=== PATIENT | male | born 1990 | race Two or more races ===

== ENCOUNTER 2018-06-05 02:16 | Emergency (ER) | payer SELFPAY ==
[~2018-06-05] VITALS: Ht 170.2 cm; Wt 95.0 kg
[2018-06-05 02:16] VITALS: BP 135/86
--- NOTE | 2018-06-05 02:26 | ED.ADGEN ---
Past History Past Medical History: Arthritis, Other Adult General Chief Complaint Chief Complaint ".. I am having bad rotator cuff pain... in my Lt shoulder... I hurt it when I was 13.. I was to get surgery on it.. but never did. tonight it is really hurting.. I have been getting mobic for it... but it is not helping tonight.. " HPI HPI Patient is a 27 year old male inmate from [facility], who presents with above hx and complaints of Lt. rotator cuff pain. Pt. has sensation in deltoid. Distal neurovascular intact. Pt. states pain has been chronic and been on multiple meds for it. Pt. denies any recent re-injury. Pt. states has been on tramadol, hydrocodone and morphine in past. These meds have been the only ones that help. No hx travel, ill contacts or immunosuppression. Pt is able to extend shoulder. ROM increased the pain. Pt. is right hand dominate. Review of Systems Review of Systems Constitutional: Denies fever or chills [] Eyes: Denies change in visual acuity, redness, or eye pain [] HENT: Denies nasal congestion or sore throat [] Respiratory: Denies cough or shortness of breath [] Cardiovascular: No additional information not addressed in HPI [] GI: Denies abdominal pain, nausea, vomiting, bloody stools or diarrhea [] : Denies dysuria or hematuria [] Musculoskeletal: Denies back pain or joint pain [] Except complaints of Lt shoulder rotator cuff pain. Integument: Denies rash or skin lesions []Multiple tattoos. Neurologic: Denies headache, focal weakness or sensory changes [] Endocrine: Denies polyuria or polydipsia [] All other systems were reviewed and found to be within normal limits, except as documented in this note. Family History Family History Non-contributory Current Medications Current Medications Current Medications Medications (Trade) Dose Ordered Sig/Mary Ann Start Time Stop Time Status Last Admin Dose Admin Methylprednisolone Acetate (DEPO-Medrol IM) 40 mg 1X ONCE 06/05/18 03:00 06/05/18 03:01 DC 06/05/18 03:08 40 MG Orphenadrine Citrate (Norflex) 60 mg 1X ONCE 06/05/18 03:00 06/05/18 03:01 DC 12/10/18 03:08 60 MG Tramadol HCl (Ultram) 50 mg 1X ONCE 06/05/18 03:00 06/05/18 03:01 DC 06/05/18 03:09 50 MG See Nursing for home meds. Allergies Allergies Allergies Coded Allergies Type Severity Reaction Last Updated Verified ibuprofen Allergy Intermediate Unknown 06/05/18 Yes Physical Exam Physical Exam Constitutional: Well developed, well nourished, no acute distress, non-toxic appearance. [] HENT: Normocephalic, atraumatic, bilateral external ears normal, oropharynx moist, no oral exudates, nose normal. [] Eyes: PERRLA, EOMI, conjunctiva normal, no discharge. [] Neck: Normal range of motion, no tenderness, supple, no stridor. [] Cardiovascular:Heart rate regular rhythm, no murmur [] Lungs & Thorax: Bilateral breath sounds equal at apex with scattered wheezes on auscultation [] Abdomen: Bowel sounds normal, soft, no tenderness, no masses, no pulsatile masses. [] Skin: Warm, dry, no erythema, no rash. [] Back: No tenderness, no CVA tenderness. [] Extremities: No tenderness, no cyanosis, no clubbing, ROM intact, no edema. [] Except findings of Lt shoulder pain as per HPI Neurologic: Alert and oriented X 3, normal motor function, normal sensory function, no focal deficits noted. [] Psychologic: Affect normal, judgement normal, mood normal. [] Current Patient Data Vital Signs Vital Signs Date Time Temp Pulse Resp B/P (MAP) Pulse Ox O2 Delivery O2 Flow Rate FiO2 06/05/18 03:09 18 97 Room Air 06/05/18 02:16 98.1 94 EKG EKG [] Radiology/Procedures Radiology/Procedures [] Course & Med Decision Making Course & Med Decision Making Pertinent Labs and Imaging studies reviewed. (See chart for details). Pt. does appear to exhibit narcotic seeking behaviors. After X-rays pt. demanded discharge. Stating if he did not want to wait for his meds. Pt. advised orders and xray reading pending. [] Final Impression Final Impression 1. Hx. Rotator Cuff Injury[] 2. Lt. Shoulder Arthropathy Dragon Disclaimer Dragon Disclaimer This electronic medical record was generated, in whole or in part, using a voice recognition dictation system. JENNIFER CANSECO MD Jun 05, 2018 02:26
[2018-06-05] MEDS ORDERED: traMADol 50 MG TABLET PO ONE (03:00)
[2018-06-05] MEDS ORDERED: ORPHENADRINE CITRATE 60 MG/2 ML VIAL. IM ONE (03:00)
[2018-06-05] MEDS ORDERED: methylPREDNISolone ACETATE 40 MG/ML VIAL. IM ONE (03:00)
--- NOTE | 2018-06-05 08:15 | RAD ---
SHOULDER 2+V LEFT, CHEST PA LATERAL Clinical indications: CHEST PAIN, LEFT SHOULDER PAIN, HX OF LABRUM TEAR IN SHOULDER WITH MULTIPLE DISLOCATIONS 2 view chest x-ray COMPARISON: None available. Findings: No acute lung infiltrate or pleural effusion or pulmonary edema or lung mass or pneumothorax is seen. The heart size, pulmonary vasculature, mediastinum and both gamaliel are unremarkable. The osseous structures appear intact. Impression: No acute radiographic abnormality is seen. 3 view study of the left shoulder: No acute fracture or dislocation or osteolytic process is evident. No AC joint separation is seen. No significant arthritic change is evident. IMPRESSION: No acute osseous abnormality. Electronically signed by: Americo Guzman MD (06/05/2018 8:11 AM) [facility]
[2018-06-06] MEDS ORDERED: Percogesic PO (12:38)
== END 2018-06-05 03:30 | disposition home or self-care (01) ==
LOC: ER 02:16
DX: M12.812 Other specific arthropathies, not elsewhere classified, left shoulder (principal); M19.90 Unspecified osteoarthritis, unspecified site; Z88.6 Allergy status to analgesic agent
CPT/HCPCS: 71046; 73030; 96372; 99283; J1030; J2360

== ENCOUNTER 2018-06-06 11:25 | Emergency (ER) | payer OTHER ==
[~2018-06-06] VITALS: Ht 170.2 cm; Wt 95.4 kg
[2018-06-06 11:28] VITALS: BP 134/93
[2018-06-06] MEDS ORDERED: ORPHENADRINE CITRATE 60 MG/2 ML VIAL. IM ONE (12:00)
--- NOTE | 2018-06-06 12:16 | RAD ---
SHOULDER 2+V LEFT History: HX torn ligament in shoulder. Stretching this AM and heard popping noise, unable to move shoulder, pain in joint. Pt shielded
. Comparison: June 05, 2018 No acute fracture or aggressive bone destruction. Joint spaces are intact. Osteolytic lesion at the humeral head with a thin uniform sclerotic rim, may represent an intraosseous cyst. No gross soft tissue abnormality. IMPRESSION: No acute fracture or dislocation. Electronically signed by: Antonino Thomas MD (06/06/2018 12:12 PM) [facility]
[2018-06-06] MEDS ORDERED: Percogesic PO (12:38)
--- NOTE | 2018-06-06 12:39 | PHYS DOC ---
Past History Past Medical History: No Pertinent History Past Surgical History: No Surgical History Alcohol Use: None Drug Use: None Adult General Chief Complaint Chief Complaint: UPPER EXTREMITY PAIN HPI HPI Patient is a 27 year old right handed male patient resident of [facility] who presents with complaining of left shoulder pain after he felt a pop this morning and was not able to move his shoulder since 7 AM today. Patient states he had history of frequent shoulder dislocation and thinks he had another dislocated shoulder. Patient denies focal neurodeficit and rated his pain 8/10. Review of Systems Review of Systems Constitutional: Denies fever or chills [] Eyes: Denies change in visual acuity, redness, or eye pain [] HENT: Denies nasal congestion or sore throat [] Respiratory: Denies cough or shortness of breath [] Cardiovascular: No additional information not addressed in HPI [] GI: Denies abdominal pain, nausea, vomiting, bloody stools or diarrhea [] : Denies dysuria or hematuria [] Musculoskeletal: Denies back pain, reports joint pain [] Integument: Denies rash or skin lesions [] Neurologic: Denies headache, focal weakness or sensory changes [] Endocrine: Denies polyuria or polydipsia [] All other systems were reviewed and found to be within normal limits, except as documented in this note. Current Medications Current Medications Current Medications Medications (Trade) Dose Ordered Sig/Mary Ann Start Time Stop Time Status Last Admin Dose Admin Orphenadrine Citrate (Norflex) 60 mg 1X ONCE 06/06/18 12:00 06/06/18 12:01 DC 06/06/18 12:03 60 MG Allergies Allergies Allergies Coded Allergies Type Severity Reaction Last Updated Verified ibuprofen Allergy Intermediate Unknown 06/05/18 Yes Physical Exam Physical Exam Constitutional: Well developed, well nourished, no acute distress, non-toxic appearance. [] HENT: Normocephalic, atraumatic Eyes: PERRLA, EOMI, conjunctiva normal, no discharge. [] Neck: Normal range of motion, no tenderness, supple, no stridor. [] Cardiovascular:Heart rate regular rhythm, no murmur [] Lungs & Thorax: Bilateral breath sounds clear to auscultation [] Abdomen: Bowel sounds normal, soft, no tenderness, no masses, no pulsatile masses. [] Skin: Warm, dry, no erythema, no rash. [] Back: No tenderness, no CVA tenderness. [] Extremities: Left shoulder without deformity or focal tenderness, normal range of motion , no cyanosis, no clubbing, ROM intact, no edema. [] Neurologic: Alert and oriented X 3, normal motor function, normal sensory function, no focal deficits noted. [] Psychologic: Affect normal, judgement normal, mood normal. [] Current Patient Data Vital Signs Vital Signs Date Time Temp Pulse Resp B/P (MAP) Pulse Ox O2 Delivery O2 Flow Rate FiO2 06/06/18 11:28 98.3 69 18 99 Room Air EKG EKG [] Radiology/Procedures Radiology/[place] [address] IMAGING REPORT Signed PATIENT: LORNA MCDONALD ACCOUNT: [id number] : 1990 LOCATION: ER AGE: 27 SEX: M EXAM STATUS: REG ER ORD. PHYSICIAN: VANESSA CHOI MD REASON: felt a pop this morning, unable to move the shoulder PROCEDURE: SHOULDER 2+V LEFT SHOULDER 2+V LEFT History: HX torn ligament in shoulder. Stretching this AM and heard popping noise, unable to move shoulder, pain in joint. Pt shielded
. Comparison: June 05, 2018 No acute fracture or aggressive bone destruction. Joint spaces are intact. Osteolytic lesion at the humeral head with a thin uniform sclerotic rim, may represent an intraosseous cyst. No gross soft tissue abnormality. IMPRESSION: No acute fracture or dislocation. Electronically signed by: Antonino Thomas MD (06/06/2018 12:12 PM) [facility] DICTATED AND SIGNED BY: ANTONINO THOMAS MD DATE: 06/06/18 1210 CC: VANESSA CHOI MD; PCP,NO ~ Course & Med Decision Making Course & Med Decision Making Pertinent Imaging studies reviewed. (See chart for details) Evaluation of patient in ER showed 27-year-old male patient with complaining of left shoulder pain after felt a pop in his shoulder. Patient states he had previous shoulder dislocation. Patient had unremarkable physical exam and x-ray of left shoulder. Patient treated feet for the next in ER and shoulder sling was applied. Plan discharge patient home with prescription of precociously and instruction to apply ice on shoulder and follow up with his primary care physician. Elías Disclaimer Dragon Disclaimer This electronic medical record was generated, in whole or in part, using a voice recognition dictation system. Departure Departure: Impression: Primary Impression: Muscle strain of left shoulder region Disposition: HOME, SELF-CARE (at 1236) Condition: IMPROVED Referrals: PCP,NO (PCP) Patient Instructions: Shoulder Sprain Additional Instructions: Apply ice on the affected area Follow-up with your primary care physician in 3-5 days Return to ER if not getting better Scripts [Percogesic] No Conflict Check 1 TAB PO QID PRN for PAIN, #14 Prov: VANESSA CHOI MD 06/06/18 VANESSA CHOI MD Jun 06, 2018 12:39
== END 2018-06-06 12:50 | disposition home or self-care (01) ==
LOC: ER 11:25
DX: S46.912A Strain of unspecified muscle, fascia and tendon at shoulder and upper arm level, left arm, initial encounter (principal); X50.9XXA Other and unspecified overexertion or strenuous movements or postures, initial encounter; Y93.89 Activity, other specified; Y92.89 Other specified places as the place of occurrence of the external cause; Y99.8 Other external cause status
CPT/HCPCS: 73030; 96372; 99283; J2360

== ENCOUNTER 2018-06-19 00:22 | Emergency (ER) | payer OTHER ==
[~2018-06-19] VITALS: Ht 170.2 cm; Wt 91.8 kg
[~2018-06-19 00:22] MED LIST: Percogesic PO
--- NOTE | 2018-06-19 01:35 | PHYS DOC ---
Past History Past Medical History: No Pertinent History Past Surgical History: No Surgical History Alcohol Use: None Drug Use: None Adult General Chief Complaint Chief Complaint: MECHANICAL FALL HPI HPI 19-year-old male presents with headache and neck pain. The patient states that this morning around 7:30 AM he fell out of his pocket. He states he landed on his head and neck. He believes he was knocked unconscious. The patient was able to get up and did not immediately come emergency room. Throughout the day he began have more pain and stiffness. He now is quite concerned about his neck as his range of motion is limited due to pain. He denies any other injuries. He denies paresthesias or numbness. Review of Systems Review of Systems Constitutional: Denies fever or chills [] Eyes: Denies change in visual acuity, redness, or eye pain [] HENT: Denies nasal congestion or sore throat [] Respiratory: Denies cough or shortness of breath [] Cardiovascular: No additional information not addressed in HPI [] GI: Denies abdominal pain, nausea, vomiting, bloody stools or diarrhea [] : Denies dysuria or hematuria [] Musculoskeletal: Neck pain[] Integument: Denies rash or skin lesions [] Neurologic: Denies headache, focal weakness or sensory changes [] Endocrine: Denies polyuria or polydipsia [] All other systems were reviewed and found to be within normal limits, except as documented in this note. Allergies Allergies Allergies Coded Allergies Type Severity Reaction Last Updated Verified acetaminophen Allergy Intermediate NAUSEA/VOMITING 06/19/18 Yes ibuprofen Allergy Intermediate Unknown 06/05/18 Yes Physical Exam Physical Exam Constitutional: Well developed, well nourished, no acute distress, non-toxic appearance. [] HENT: Normocephalic, atraumatic, bilateral external ears normal, oropharynx moist, no oral exudates, nose normal. [] Eyes: PERRLA, EOMI, conjunctiva normal, no discharge. [] Neck: Limited range of motion due to pain, paraspinal cervical tenderness bilaterally[] Cardiovascular:Heart rate regular rhythm, no murmur [] Lungs & Thorax: Bilateral breath sounds clear to auscultation [] Abdomen: Bowel sounds normal, soft, no tenderness, no masses, no pulsatile masses. [] Skin: Warm, dry, no erythema, no rash. [] Back: No tenderness, no CVA tenderness. [] Extremities: No tenderness, no cyanosis, no clubbing, ROM intact, no edema. [] Neurologic: Alert and oriented X 3, normal motor function, normal sensory function, no focal deficits noted. [] Psychologic: Affect normal, judgement normal, mood normal. [] Current Patient Data Vital Signs Vital Signs Date Time Temp Pulse Resp B/P (MAP) Pulse Ox O2 Delivery O2 Flow Rate FiO2 06/19/18 00:51 97.9 98 20 97 Room Air EKG EKG [] Radiology/Procedures Radiology/Procedures [] Impressions: CT head and cervical spine without contrast 06/19/2018. Reason for exam: Fell off top bunk and landed on head. Noncontrast images were performed through the brain. Exposure: One or more of the following individualized dose reduction techniques were utilized for this examination: 1. Automated exposure control 2. Adjustment of the mA and/or kV according to patient size 3. Use of iterative reconstruction technique. FINDINGS: There is no apparent intracranial hemorrhage or abnormal extra-axial fluid collection. No area of abnormal density is seen in the brain. The ventricles and basilar cisterns are normally positioned. Bone windows show no apparent fracture of the skull or abnormal sinus or mastoid opacification. IMPRESSION: No acute intracranial abnormality. CT cervical spine: Helical noncontrast images were performed. Sagittal and coronal reconstructions were obtained. Exposure: One or more of the following individualized dose reduction techniques were utilized for this examination: 1. Automated exposure control 2. Adjustment of the mA and/or kV according to patient size 3. Use of iterative reconstruction technique. FINDINGS: Alignment is normal. There is no apparent loss of vertebral body height or prevertebral soft tissue swelling. No fracture line is seen. The intervertebral discs are not narrowed. There is no apparent destructive process. IMPRESSION: No acute abnormality. Electronically signed by: Quentin Moraes Jr., MD (06/19/2018 1:53 AM) [facility] Course & Med Decision Making Course & Med Decision Making Pertinent Labs and Imaging studies reviewed. (See chart for details) The patient's head and neck CT is negative for acute findings or fracture. The patient appeared to have soft tissue injury. I have given him one [place] 5/325 in the ED. I will discharge him with a course of these medications as well, 10 pills. [] Dragon Disclaimer Elías Disclaimer This electronic medical record was generated, in whole or in part, using a voice recognition dictation system. Departure Departure: Referrals: PCP,NO (PCP) MARK CRABTREE DO Jun 19, 2018 01:35
--- NOTE | 2018-06-19 01:57 | RAD ---
CT head and cervical spine without contrast 06/19/2018. Reason for exam: Fell off top bunk and landed on head. Noncontrast images were performed through the brain. Exposure: One or more of the following individualized dose reduction techniques were utilized for this examination: 1. Automated exposure control 2. Adjustment of the mA and/or kV according to patient size 3. Use of iterative reconstruction technique. FINDINGS: There is no apparent intracranial hemorrhage or abnormal extra-axial fluid collection. No area of abnormal density is seen in the brain. The ventricles and basilar cisterns are normally positioned. Bone windows show no apparent fracture of the skull or abnormal sinus or mastoid opacification. IMPRESSION: No acute intracranial abnormality. CT cervical spine: Helical noncontrast images were performed. Sagittal and coronal reconstructions were obtained. Exposure: One or more of the following individualized dose reduction techniques were utilized for this examination: 1. Automated exposure control 2. Adjustment of the mA and/or kV according to patient size 3. Use of iterative reconstruction technique. FINDINGS: Alignment is normal. There is no apparent loss of vertebral body height or prevertebral soft tissue swelling. No fracture line is seen. The intervertebral discs are not narrowed. There is no apparent destructive process. IMPRESSION: No acute abnormality. Electronically signed by: Quentin Moraes Jr., MD (06/19/2018 1:53 AM) [facility]
[2018-06-19] MEDS: HYDROcodone/APAP 5/325MG 1 TAB TABLET PO ONE (02:18)
[2018-06-19] MEDS ORDERED: HYDR-3165 PO (02:25)
[2018-06-19 02:34] VITALS: BP 159/101
== END 2018-06-19 02:35 | disposition home or self-care (01) ==
LOC: ER 00:22
DX: R51 Headache (principal); M54.2 Cervicalgia; G89.11 Acute pain due to trauma; Z88.6 Allergy status to analgesic agent; W06.XXXA Fall from bed, initial encounter; Y93.89 Activity, other specified; Y92.89 Other specified places as the place of occurrence of the external cause; Y99.8 Other external cause status
CPT/HCPCS: 70450; 72125; 99284-25